=== PATIENT | female | born 1940 | race Caucasian/White ===

== ENCOUNTER → 2017-06-19 | Outpatient (CLI) | payer BC | LOC: BMCIMAGING 07:32 | PROVIDERS: ATTEND Internal Medicine | DX: Z12.31 Encounter for screening mammogram for malignant neoplasm of breast (principal) | CPT/HCPCS: G0202 ==

== ENCOUNTER → 2018-09-26 | Outpatient (CLI) | payer OTHER | LOC: BMCIMAGING 14:34 | PROVIDERS: ATTEND Internal Medicine | DX: Z12.31 Encounter for screening mammogram for malignant neoplasm of breast (principal); Z13.820 Encounter for screening for osteoporosis; M81.0 Age-related osteoporosis without current pathological fracture ==

== ENCOUNTER → 2018-10-10 | Outpatient (CLI) | payer OTHER ==
[~2018-10-10] MED LIST: IOPAMIDOL (ISOVUE-300) 100 ML BTL ONE
== END ==
LOC: CIMAGING 08:19
PROVIDERS: ATTEND Urology
DX: N20.0 Calculus of kidney (principal); N13.5 Crossing vessel and stricture of ureter without hydronephrosis; R31.21 Asymptomatic microscopic hematuria; D25.9 Leiomyoma of uterus, unspecified
CPT/HCPCS: 74178; Q9967

== ENCOUNTER 2018-11-14 10:15 | Day surgery (SDC) | payer OTHER ==
[2018-11-14] MEDS ORDERED: OPIUM/BELLADONNA ALKALO SUPP PR PRN (10:24)
[2018-11-14] MEDS ORDERED: ceFAZolin 2 GM/DEXTROSE 100 ML IV ONE (10:24)
[2018-11-14] MEDS ORDERED: LR 1,000 ML IV ONE (10:25)
--- NOTE | 2018-11-14 11:14 | PDANEPAE ---
ANE History of Present Illness R URETEROSCOPY, STENT ANE Past Medical History - Cardiovascular History Hx Hypertension: No Hx Arrhythmias: No Hx Chest Pain: No Hx Coronary Artery / Peripheral Vascular Disease: No Hx CHF / Valvular Disease: No Hx Palpitations: No - Pulmonary History Hx COPD: No Hx Asthma/Reactive Airway Disease: No Hx Recent Upper Respiratory Infection: No Hx Oxygen in Use at Home: No Hx Sleep Apnea: No Sleep Apnea Screening Result - Last Documented: Negative - Neurologic History Hx Cerebrovascular Accident: No Hx Seizures: No Hx Dementia: No - Endocrine History Hx Diabetes: Yes Endocrine History Comment: Hypothyroid. - Renal History Hx Renal Disorders: Yes Renal History Comment: R kidney stone 2019. - Liver History Hx Hepatic Disorders: No - Neurological & Psychiatric Hx Hx Neurological and Psychiatric Disorders: No - Cancer History Hx Cancer: Yes Cancer History Comment: L arm melanoma s/p resection, no chemo/radiation. - Congenital Disorder History Hx Congenital Disorders: No - GI History Hx Gastrointestinal Disorders: No - Other Health History Other Health History: PE/DVT, genetically predisposed Dx 2016. Osteopenia. OA R hip, bilateral knees. Upper L 1 missing tooth, non-removable bridge. - Chronic Pain History Chronic Pain: No - Surgical History Prior Surgeries: 2017 Colonoscopy. 2010 R arm fracture with plate and artificial radial head replacement. ANE Review of Systems Review of systems is: negative Review of Systems: - Exercise capacity METS (RN): 4 METS ANE Patient History - Allergies Allergies/Adverse Reactions: adhesive tape Allergy (Intermediate, Verified 11/08/18 10:53) Rash bacitracin [From Neosporin ([id number])] Allergy (Intermediate, Verified 09/24 10:53) Rash neomycin [From Neosporin ([id number])] Allergy (Intermediate, Verified 10:53) Rash polymyxin B [From Neosporin ([id number])] Allergy (Intermediate, Verified 09/24 10:53) Rash Wasp venom Allergy (Severe, Uncoded 11/08/18 10:53) Anaphylaxis - Home Medications Home medications: home medication list seen and reviewed Home Medications: Apixaban [Eliquis] 5 mg PO BID 11/08/18 [Last Taken 11/14/18 07:30] Calcium Carbonate/Vitamin D3 [Calcium 500-Vit D3 600 Tablet] 1 each PO 11/08/18 [Last Taken 11/07/18] EPINEPHrine [Epipen 0.3 MG] 0.3 mg IM ONCE PRN 11/08/18 [Last Taken Unknown] Estradiol gm TD 11/08/18 [Last Taken 11/12/18] Levothyroxine [Synthroid 75 mcg (*)] 75 mcg PO DAILY06 11/08/18 [Last Taken 03/27 07:00] Multivitamin [One Daily] 1 each PO 11/08/18 [Last Taken 11/07/18] - NPO status NPO Since - Liquids (Date): 11/14/18 NPO Since - Liquids (Time): 08:45 NPO Since - Solids (Date): 11/13/18 NPO Since - Solids (Time): 18:30 - Anes Hx Anes Hx: no prior problems - Smoking Hx Smoking Status: Never smoked - Family Anes Hx Family Hx Anesthesia Complications: None. ANE Labs/Vital Signs - Vital Signs Vital Signs: reviewed preoperatively; see RN documention for details Blood Pressure: 156/89 Heart Rate: 72 Respiratory Rate: 16 O2 Sat (%): 96 Height: 162.56 cm Weight: 65.771 kg ANE Physical Exam - Airway Neck exam: FROM Mallampati Score: Class 1 Mouth exam: normal dental/mouth exam - Pulmonary Pulmonary: no respiratory distress - Cardiovascular Cardiovascular: regular rate and rhythym - ASA Status ASA Status: II ANE Anesthesia Plan Anesthesia Plan: GA w LMA
[2018-11-14] MEDS ORDERED: MIDAZOLAM 2 MG/2 ML VIAL IVP ONE ×2 (11:15→12:10)
[2018-11-14] MEDS ORDERED: DEXAMETHASONE 4 MG/ML VIAL ONE (11:25)
[2018-11-14] MEDS ORDERED: LIDOCAINE 2% 100 MG/5 ML SYR ONE (11:25)
[2018-11-14] MEDS ORDERED: ONDANSETRON 4 MG/2 ML VIAL ONE (11:25)
[2018-11-14] MEDS ORDERED: fentaNYL 100 MCG/2 ML INJ ONE (11:26)
[2018-11-14] MEDS ORDERED: PROPOFOL 200 MG/20 ML VIAL ONE (11:26)
--- NOTE | 2018-11-14 12:06 | PDHPUP ---
History & Physical Update H&P update statement: This history and physical update is based on an assessment of the patient which was completed after admission or registration (within 24 hours), but prior to the surgery/procedure. H&P update: H&P reviewed & patient examined, no change in patient's condition since H&P completed
[2018-11-14] MEDS ORDERED: MIDAZOLAM 2 MG/2 ML VIAL ONE (12:21)
[2018-11-14] MEDS ORDERED: LIDOCAINE 2% JELLY 20 ML (UROJECT) ONE (12:22)
[2018-11-14] MEDS ORDERED: IOPAMIDOL (ISOVUE-M 300) 15 ML VIAL ONE (12:23)
[2018-11-14] MEDS ORDERED: OPIUM/BELLADONNA ALKALO SUPP PR ONE (12:23)
[2018-11-14] MEDS ORDERED: PROMETHAZINE HCL 25 MG/ML INJ IVP PRN (12:52)
[2018-11-14] MEDS ORDERED: MEPERIDINE 25 MG/0.5 ML AMP IVP PRN (12:52)
[2018-11-14] MEDS ORDERED: NALOXONE HCL 0.4 MG/ML INJ IVP PRN (12:52)
[2018-11-14] MEDS ORDERED: ONDANSETRON 4 MG/2 ML VIAL IVP PRN (12:52)
[2018-11-14] MEDS ORDERED: fentaNYL 100 MCG/2 ML INJ IVP PRN (12:52)
[2018-11-14] MEDS ORDERED: DEXAMETHASONE 4 MG/ML VIAL IVP PRN (12:52)
[2018-11-14] MEDS ORDERED: HYDROCODONE/APAP 5/325 TAB PO PRN (12:52)
[2018-11-14] MEDS ORDERED: oxyCODONE IR 5 MG TAB PO PRN (12:52)
[2018-11-14] MEDS ORDERED: HYDROmorphONE/DILAUDID 1 MG/ML INJ IVP PRN (12:52)
--- NOTE | 2018-11-14 12:52 | POSTANESTH ---
Post Anesthetic Evaluation Cardiovascular Status: Normal, Stable, Similar to Pre-Op Cond Respiratory Status: Normal, Stable, Similar to Pre-op Cond. Level of Consciousness/Mental Status: Can Participate in Eval, Mildly Sleepy, Arousable Pain Control: Adequate, Prn Tx Ordered Nausea/Vomiting Control: Adequate, Prn Tx Ordered Complications Possibly Related to Anesthesia: None Noted
--- NOTE | 2018-11-14 14:06 | POSTOPPROG ---
Post Op Note Date of Operation: 11/14/18 Surgeon: Danielle Nguyen Anesthesiologist: Susan Anesthesia: GET(General Endotracheal) Pre-op Diagnosis: left renal stone, hematuria Post-op Diagnosis: bladder lesion, left renal stone, hematuria Indication: left renal stone Procedure: cysto, bladder bx, fulguration of bx site, LURS, laser,stent, basket ext st Findings: small <3mm lesion near L UO removed, left stone removed Inf/Abcess present in the surg proc area at time of surgery?: No EBL: Minimal Complications: none, pt tolerated procedure well Specimen(s): bladder lesion, stone
[2018-11-14 15:08] VITALS: BP 160/69
--- NOTE | 2018-11-15 11:07 | GOP ---
[f rep st] OPERATIVE REPORT DATE OF OPERATION: 11/14/2018 SURGEON: Danielle Nguyen MD ANESTHESIA: General. ANESTHESIOLOGIST: Dr. Davis. PREOPERATIVE DIAGNOSIS: Left renal stone and blood in the urine. POSTOPERATIVE DIAGNOSIS: Bladder lesion, left renal stone, and blood in the urine. PROCEDURE PERFORMED: Cystoscopy, bladder biopsy, fulguration of biopsy site, left ureteroscopy, laser lithotripsy, stent basket extraction of stone, retrograde pyelogram, intraoperative fluoroscopy. FINDINGS: Small, less than 3 mm lesion near the left ureteral orifice that was removed and base fulgurated. The left renal stone was lasered and removed in its entirety. Bilateral retrograde pyelograms did not show any filling defects except the stone in the left kidney. SPECIMENS: A bladder lesion as well as left renal stone. ESTIMATED BLOOD LOSS: Minimal. INDICATIONS: Left renal stone. DESCRIPTION OF PROCEDURE: The patient was taken back to the cystoscopy suite, placed on the cystoscopy table in the supine position. General anesthesia induced without complication. Time-out performed and core measures satisfied, including placement of a Tommie Hugger, SCDs, and administration of Ancef antibiotics. She was brought to the end of the table, placed in a dorsal lithotomy position. All pressure points were padded. Genitalia draped and prepped in a standard surgical fashion with Betadine. Rigid cystoscope easily cannulated the urethral meatus and was advanced atraumatically into the bladder. Michael cystoscopy was performed. There was a small lesion just left lateral of the left ureteral orifice. It was certainly abnormal, and I did feel that I would remove this and send it for pathology. I did michael cystoscopy with a 30-degree lens and there were no other lesions, cellules, trabeculations , or abnormalities in the bladder. She did have a history of blood in the urine and so removing this bladder lesion is very appropriate as it may have been a source of hematuria. I advanced a biopsy grasper through the cystoscope to the level of the lesion and removed the lesion with 1 use of the biopsy forceps. This was sent to Pathology. She is on Eliquis, and so I will fulgurate this at the end of the procedure. The site did have some bleeding, so I then proceeded with bilateral retrograde pyelograms because there was no contrast filling in the distal ureters on her CT urogram and both retrogrades were normal without any ureteral filling defects or abnormalities and the renal pelvises were normal without any hydronephrosis. There was a filling defect in the left collecting system from the stone in the upper pole, but otherwise no other abnormalities bilaterally. I then proceeded to put up 2 wires on the left side with fluoroscopic and cystoscopic guidance. I advanced an access sheath over one of the wires with fluoroscopic guidance and the sheath advanced smoothly without any friction up to the left renal pelvis. I then advanced a flexible cystoscope through the sheath, found the stone in the upper pole, lasered this in its entirety into dust and passable fragments, and removed the fragments with a basket and then the dust would pass on its own. I looked around the whole kidney calices and there were no other stones and no other fragments to remove. I did another retrograde just for helping me with stent placement, and then I removed the sheath and the scope together. The ureteral wall was without injury or edema and my safety wire was still up and then I placed a 6-Romansh double-J stent multivariable length with fluoroscopic and cystoscopic guidance with a nice curl in the renal pelvis and a nice curl in the bladder. I then emptied the bladder of saline, hung a bag of glycine, placed a grounding pad, and then advanced a Bugbee to the level of the bladder mucosal lesion that I biopsied and fulgurated this. Hemostasis was excellent. I did not injure the left ureteral orifice. The stent was in place and emptied her bladder. At this point, I considered the procedure complete. Lidocaine jelly was placed per urethra and belladonna opium suppository was placed per rectum. The procedure was now considered complete. She was awoken from anesthesia and transferred to PACU in good condition. We will get her stent out next week, and I will let her know about the pathology. COMPLICATIONS: None. The patient tolerated the procedure well. /[id number]/MODL MTDD
== END 2018-11-14 15:20 | disposition home or self-care (01) ==
LOC: FSGY 10:15
PROVIDERS: ATTEND Urology
DX: N20.0 Calculus of kidney (principal); D41.4 Neoplasm of uncertain behavior of bladder; E03.9 Hypothyroidism, unspecified; Z86.718 Personal history of other venous thrombosis and embolism; Z86.711 Personal history of pulmonary embolism
CPT/HCPCS: 52356; 76000; C1758; C1769; C1894; 82365-90; C2625; J0690; J1100; J2001; J2250; J2405; J2704; J3010; Q9967